=== PATIENT | female | born 1980 | race Caucasian/White ===

== ENCOUNTER 2016-10-07 10:02 | Emergency (ER) | payer BC, OTHER ==
[~2016-10-07] VITALS: Ht 175.3 cm; Wt 133.0 kg
[~2016-10-07 10:02] MED LIST: ARIP20TA6 PO; CIPR500T4 PO; CITA-104 PO; CYCL5TAB PO; FAMO-18 PO; HYDR2TAB15 PO; METR500T PO; NORE-17 PO; ZOF8 PO; [UNRECOGNIZED DRUG - CODE] PO
[2016-10-07 10:06] VITALS: Ht 175.3 cm; Wt 133.0 kg
[2016-10-07] MEDS ORDERED: BEN50 PO (10:56)
[2016-10-07] MEDS ORDERED: PRED20TA PO (10:56)
[2016-10-07] MEDS ORDERED: SODI126M NASAL (10:56)
[2016-10-07] MEDS ORDERED: LIDOCAINE 2% VISC 15 ML CUP PO ONE (11:00)
--- NOTE | 2016-10-07 14:16 | ERD ---
ER Documentation Chief Complaint Date/Time DATE: 10/07/16 TIME: 14:03 Chief Complaint COUGH STARTED TODAY; SORE THROAT HPI 36-year-old female complaining of sore throat and cough since this morning. Patient stated that she has pain in her uvula, and felt her uvula is swollen. When she coughed, there was slight blood. Patient also reports body aches and nasal congestion. She is taking Metformin, gabapentin, insulin, oral contraceptive, losartan, citalopram. Denies fever or chills. Denies shortness of breath. Denies exposure to new foods or new cleaning products. ROS All systems reviewed and are negative except as per history of present illness. Medications Home Meds Active Scripts Sodium Chloride (Saline Nasal Mist) 126 Ml Mist, 2 SPRAY NASAL Q2H Y for NASAL CONGESTION, #1 BOTTLE Prov:JONNIE ROACH. CODE ENFORCEMENT SUPERVISOR 10/07/16 Diphenhydramine Hcl* (Benadryl*) 50 Mg Cap, 50 MG PO Q6H Y for ITCHING/RASH, # 30 CAP Prov:JONNIE ROACH. CODE ENFORCEMENT SUPERVISOR 10/07/16 Prednisone* (Prednisone*) 20 Mg Tab, 60 MG PO DAILY for 3 Days, TAB Prov:JONNIE ROACH. CODE ENFORCEMENT SUPERVISOR 10/07/16 Cyclobenzaprine Hcl* (Cyclobenzaprine Hcl*) 5 Mg Tablet, 5 MG PO Q8H Y for MUSCLE SPASMS, #30 TAB Prov:DAGO ESPARZA 04/17/15 Ciprofloxacin Hcl* (Ciprofloxacin Hcl*) 500 Mg Tablet, 500 MG PO BID for 5 Days , TAB Prov:DAGO ESPARZA 04/17/15 Metronidazole* (Flagyl*) 500 Mg Tablet, 500 MG PO TID for 5 Days, TAB Prov:DAGO ESPARZA 04/17/15 Fvkakb-Vacektx-Ndtjxkue* (Pancrelipase* DR) 1 Cap Cap, 1 CAP PO WITH MEALS for 30 Days, CAP 3 Refills Prov:DAGO ESPARZA 04/17/15 Hydromorphone Hcl* (Dilaudid*) 2 Mg Tab, 2 MG PO Q6H Y for PAIN, #30 Prov:DAGO ESPARZA 04/17/15 Ondansetron Hcl* (Zofran* ODT) 8 mg -ODT Tab.disper, 8 MG PO Q6 Y for NAUSEA AND /OR VOMITING, #10 TAB Prov:PATRICIA SCHREIBER PA-C 04/10/15 Famotidine* (Pepcid*) 20 Mg Tablet, 20 MG PO BID for 4 Days, TAB Prov:VIRA BROWN MD 04/09/15 Reported Medications Citalopram Hydrobromide* (Citalopram Hydrobromide*) 40 Mg Tablet, 60 MG PO DAILY , TAB 04/09/15 Norethindrone A-E Estradiol (GILDESS) 1 Each Tablet, 1 EACH PO DAILY 12/24/14 Aripiprazole* (Abilify*) 20 Mg Tablet, 20 MG PO DAILY, TAB 12/23/14 Allergies Allergies: Coded Allergies: Penicillins (Verified Allergy, Unknown, 04/11/15) latex (Verified Allergy, Unknown, 04/11/15) Uncoded Allergies: iv contrast (Allergy, Intermediate, 12/24/14) rash and itching PMhx/Soc History of Surgery: Yes (CHOLECYSTECTOMY ) Anesthesia Reaction: No Hx Neurological Disorder: No Hx Respiratory Disorders: No Hx Cardiac Disorders: No Hx Psychiatric Problems: No Hx Miscellaneous Medical Probl: Yes (PANCREATITIS , POLYCYSTIC OVARY DISEASE, DM ) Hx Alcohol Use: No Hx Substance Use: No Hx Tobacco Use: No Smoking Status: Never smoker Physical Exam Vitals Vital Signs Date Time Temp Pulse Resp B/P Pulse Ox O2 Delivery O2 Flow Rate FiO2 10/07/16 10:06 97.8 98 96 127/75 94 Physical Exam General impression: Well-developed, well-nourished, 36-year-old female, alert, oriented, in no acute distress Head: Normocephalic, atraumatic. Eyes: PERRL, EOM normal. Conjunctiva not injected. ENT: Nasal mucosa erythematous and swollen. Oral mucosa normal. Uvula swollen and erythematous. No tonsillar swelling or exudates. Neck: Supple, nontender. No lymphanopathy. No nuchal rigidity. Respiration: Normal respiratory effort. Lungs clear to auscultate bilaterally. No wheezes, rales or rhonchi. Cardiovascular: Regular rate and rhythm. No murmurs or extra heart sounds. Neuro: Mental status normal, speech normal. Skin: Normal turgor. No rash or lesions. Psych: Normal mood and affect. Results 24 hrs Current Medications Medications (Trade) Dose Ordered Sig/Refugio Route PRN Reason Start Time Stop Time Status Last Admin Dose Admin Lidocaine (Xylocaine (Viscous)) 15 ml ONCE ONCE PO 10/07/16 11:00 10/07/16 11:01 DC 10/07/16 11:06 Procedures/MDM Patient appears to have uvulitis, suspect angioedema secondary to losartan. No sign of anaphylaxis. Patient advised to stop losartan and follow-up with her PCP. Patient also appeared to have superimposing viral upper respiratory infection. Patient is afebrile, in no respiratory distress. Lungs are clear to auscultate. I doubt that patient has pneumonia or bronchitis. Viscous lidocaine given to the patient in the ED for pain relief. Patient appears well, stable for discharge and outpatient management. Medical decision making shared with patient and family. Education provided to patient and family. Patient and family expressed understanding of the plan. Medications on discharge: Prednisone, Benadryl, saline nasal spray. Follow-up: Primary care provider in 2-3 days or return to ED if worse. Departure Diagnosis: Primary Impression: Uvulitis Additional Impression: URI (upper respiratory infection) Condition: Stable Patient Instructions: Kid Care: Colds, Uvulitis Additional Instructions: Call your primary care doctor TOMORROW for an appointment during the next 2-3 days.See the doctor sooner or return here if your condition worsens before your appointment time. JONNIE ROACH NP Oct 07, 2016 14:15
== END 2016-10-07 11:30 | disposition home or self-care (01) ==
LOC: FTE 10:02
DX: K12.2 Cellulitis and abscess of mouth (principal); J06.9 Acute upper respiratory infection, unspecified; E11.9 Type 2 diabetes mellitus without complications; Z79.4 Long term (current) use of insulin; Z79.84 Long term (current) use of oral hypoglycemic drugs
CPT/HCPCS: Z7502; Z7610; 99283

== ENCOUNTER 2016-10-10 16:48 | Emergency (ER) | payer OTHER ==
[~2016-10-10] VITALS: Ht 175.3 cm; Wt 133.0 kg
[~2016-10-10 16:48] MED LIST changes: +BEN50 PO; +PRED20TA PO; +SODI126M NASAL
[2016-10-10 16:53] VITALS: Ht 175.3 cm; Wt 133.0 kg
[2016-10-10] MEDS ORDERED: HYDROmorphONE 1 MG/ML SYG IV STA (18:14)
[2016-10-10] MEDS ORDERED: ONDANSETRON 4 MG INJ IV STA (18:14)
--- NOTE | 2016-10-10 18:35 | ERD ---
ER Documentation Chief Complaint Date/Time DATE: 10/10/16 TIME: 18:31 Chief Complaint AP SINCE Thursday This patient is a 36-year-old female with history of pancreatitis, PCOS, fatty liver, and type 2 diabetes who is presenting to the emergency department for right upper quadrant pain which began at 10 AM today. She rates the pain a 9 out of 10 on the pain scale with radiation to the back. Additionally she reports nausea and pale, white stools for the past 2 days. She states this happened in the past before when she had pancreatitis. She has taken no medications today for relief of her symptoms. She has no fevers, chills, vomiting, diarrhea, or other symptoms at this time. There are no other alleviating or exacerbating factors at this time. ROS All systems reviewed and are negative except as per history of present illness. Medications Home Meds Active Scripts Hydrocodone/Acetaminophen ([place] 5-325 Tablet) 1 Each Tablet, 1 TAB PO Q6H Y for PAIN, #6 TAB Prov:PAUL PEREZ PA-C 10/10/16 Sodium Chloride (Saline Nasal Mist) 126 Ml Mist, 2 SPRAY NASAL Q2H Y for NASAL CONGESTION, #1 BOTTLE Prov:JONNIE ROACH. COMMERCIAL REVIEW APPRAISER 10/07/16 Diphenhydramine Hcl* (Benadryl*) 50 Mg Cap, 50 MG PO Q6H Y for ITCHING/RASH, # 30 CAP Prov:JONNIE ORACH. COMMERCIAL REVIEW APPRAISER 10/07/16 Prednisone* (Prednisone*) 20 Mg Tab, 60 MG PO DAILY for 3 Days, TAB Prov:JONNIE ROACH. COMMERCIAL REVIEW APPRAISER 10/07/16 Cyclobenzaprine Hcl* (Cyclobenzaprine Hcl*) 5 Mg Tablet, 5 MG PO Q8H Y for MUSCLE SPASMS, #30 TAB Prov:DAGO ESPARZA F 04/17/15 Ciprofloxacin Hcl* (Ciprofloxacin Hcl*) 500 Mg Tablet, 500 MG PO BID for 5 Days , TAB Prov:DAGO ESPARZA F 04/17/15 Metronidazole* (Flagyl*) 500 Mg Tablet, 500 MG PO TID for 5 Days, TAB Prov:DAGO ESPARZA F 04/17/15 Mdbqar-Ehjvnxn-Olvniilc* (Pancrelipase* DR) 1 Cap Cap, 1 CAP PO WITH MEALS for 30 Days, CAP 3 Refills Prov:DAGO ESPARZA 04/17/15 Hydromorphone Hcl* (Dilaudid*) 2 Mg Tab, 2 MG PO Q6H Y for PAIN, #30 Prov:DAGO ESPARZA 04/17/15 Ondansetron Hcl* (Zofran* ODT) 8 mg -ODT Tab.disper, 8 MG PO Q6 Y for NAUSEA AND /OR VOMITING, #10 TAB Prov:PATRICIA SCHREIBER PA-C 04/10/15 Famotidine* (Pepcid*) 20 Mg Tablet, 20 MG PO BID for 4 Days, TAB Prov:VIRA BROWN MD 04/09/15 Reported Medications Citalopram Hydrobromide* (Citalopram Hydrobromide*) 40 Mg Tablet, 60 MG PO DAILY , TAB 04/09/15 Norethindrone A-E Estradiol (GILDESS) 1 Each Tablet, 1 EACH PO DAILY 12/24/14 Aripiprazole* (Abilify*) 20 Mg Tablet, 20 MG PO DAILY, TAB 12/23/14 Allergies Allergies: Coded Allergies: Penicillins (Verified Allergy, Unknown, 04/11/15) latex (Verified Allergy, Unknown, 04/11/15) Uncoded Allergies: iv contrast (Allergy, Intermediate, 12/24/14) rash and itching PMhx/Soc History of Surgery: Yes (CHOLECYSTECTOMY ) Anesthesia Reaction: No Hx Neurological Disorder: No Hx Respiratory Disorders: No Hx Cardiac Disorders: No Hx Psychiatric Problems: No Hx Miscellaneous Medical Probl: Yes (PANCREATITIS , POLYCYSTIC OVARY DISEASE, DM ) Hx Alcohol Use: No Hx Substance Use: No Hx Tobacco Use: No FmHx Noncontributory for chief Physical Exam Vitals Vital Signs Date Time Temp Pulse Resp B/P Pulse Ox O2 Delivery O2 Flow Rate FiO2 10/10/16 20:35 73 18 130/83 97 Room Air 10/10/16 16:53 98.1 99 20 150/90 99 Physical Exam INITIAL VITAL SIGNS: Reviewed by me GENERAL: The patient is well developed and appropriate for usual state of health in no apparent distress HEENT: Pupils equal, round, and reactive to light. EOMI. There is no scleral icterus. NECK: C-spine is soft and supple, there is no meningismus. There is no cervical lymphadenopathy. LUNGS: Clear to auscultation bilaterally. There are no rales, wheezes or rhonchi. HEART: Regular rate and rhythm, no murmurs, clicks, rubs or gallops. ABDOMEN: Obese with tenderness to palpation of the right upper quadrant. There is no rebound tenderness or guarding. There is no McBurney's point tenderness. Negative Rovsing sign. EXTREMITIES: There is no peripheral cyanosis or edema. No focal swelling or erythema. NEUROLOGICAL: The patient moves all four extremities with 5/5 strength. Normal gait. Alert and oriented SKIN: There is no apparent rash or petechiae. HEME/LYMPHATIC: There is no evidence of excessive bruising or lymphedema. PSYCHIATRIC: The patient does not appear anxious or depressed. Result Diagram: 10/10/16184810/10/161848 Results 24 hrs Laboratory Tests Test 10/10/16 18:49 10/10/16 18:58 Alanine Aminotransferase (ALT/SGPT) 18IU/L Albumin 3.9g/dl Albumin/Globulin Ratio 1.05 Alkaline Phosphatase 97IU/L Anion Gap 19 Aspartate Amino Transf (AST/SGOT) 15IU/L Basophils # 0.110^3/ul Basophils % 0.4% Blood Morphology Comment Blood Urea Nitrogen 22mg/dl Calcium Level 9.8mg/dl Carbon Dioxide Level 22mmol/L Chloride Level 101mmol/L Creatinine 0.70mg/dl Direct Bilirubin 0.00mg/dl Eosinophils # 0.110^3/ul Eosinophils % 0.9% Globulin 3.70g/dl Glucose Level 238mg/dl Hematocrit 40.2% Hemoglobin 13.8g/dl Indirect Bilirubin 0.1mg/dl Lipase 251U/L Lymphocytes # 5.010^3/ul Lymphocytes % 32.5% Mean Corpuscular Hemoglobin 28.9pg Mean Corpuscular Hemoglobin Concent 34.3g/dl Mean Corpuscular Volume 84.3fl Mean Platelet Volume 7.8fl Monocytes # 1.510^3/ul Monocytes % 9.6% Neutrophils # 8.810^3/ul Neutrophils % 56.6% Nucleated Red Blood Cells # 0.010^3/ul Nucleated Red Blood Cells % 0.0/100WBC Platelet Count 67579^3/UL Potassium Level 3.6mmol/L Red Blood Count 4.7710^6/ul Red Cell Distribution Width 13.2% Sodium Level 138mmol/L Total Bilirubin 0.1mg/dl Total Protein 7.6g/dl White Blood Count 15.510^3/ul Urine Bacteria MODERATE Urine Bilirubin NEGATIVE Urine Calcium Oxalate Crystals FEW Urine Clarity CLOUDY Urine Color YELLOW Urine Glucose 0.5%% Urine Hemoglobin 3+ Urine Ketones TRACE Urine Leukocyte Esterase NEGATIVE Urine Microscopic RBC 10-25/HPF Urine Microscopic WBC 5-10/HPF Urine Nitrite NEGATIVE Urine Specific [place] >=1.030 Urine Squamous Epithelial Cells MANY Urine Total Protein 1+ Urine Urobilinogen 0.2 E.U./dL Urine pH 6.0 Current Medications Medications (Trade) Dose Ordered Sig/Refugio Route PRN Reason Start Time Stop Time Status Last Admin Dose Admin Hydromorphone HCl (Dilaudid) 1 mg ONCE STAT IV 10/10/16 18:14 10/10/16 18:17 DC 10/10/16 18:33 Ondansetron HCl (Zofran Inj) 4 mg ONCE STAT IV 10/10/16 18:14 10/10/16 18:17 DC 10/10/16 18:33 Procedures/MDM ED course: Labs: Lab results reviewed and there was slight leukocytosis with left shift. Lipase was with in normal limits. The patient's glucose was slightly elevated at 238 there were no signs of DKA. Medications: IV Dilaudid was given in the department for acute pain relief. IV Zofran was given in the department for acute nausea relief. Reevaluation: The patient was reevaluated at approximately 7:13 PM and was feeling improved after medication for pain relief. MDM: This patient is a 36-year-old female presenting to the emergency department for right upper quadrant pain which began at 10 AM today. Physical examination reveals the patient is acutely tender to palpation of the right upper quadrant. The patient was given IV Dilaudid and IV Zofran for relief of acute pain and nausea. The patient was feeling improved on reevaluation. After review of labs there were no signs of pancreatitis or other acute abdominal emergencies. At this time the patient is stable for discharge home with a prescription for acute pain relief. The patient was told to follow-up within 24 hours if her abdominal pain persists. If the patient has any concerning symptoms she is also advised to return the emergency department. I discussed this case with supervising physician Dr. Finesse Perdomo who agreed with the laboratory results, radiology results, assessment, and plan. The patient agrees with the plan and she is stable for discharge at this time. Her questions and concerns were addressed. Departure Diagnosis: Primary Impression: Abdominal pain Condition: Stable Patient Instructions: Abdominal Pain Additional Instructions: Follow-up with your primary care physician within 1 week. Return to the emergency department immediately should you have any new or worsening symptoms, uncontrolled fevers, or other unexplained symptoms. Take all medications as directed. The patient's blood pressure was elevated (>120/80) but appears stable without evidence of hypertension emergency or urgency. The patient was counseled about the risks of hypertension and urged to pursue outpatient monitoring and therapy within a week with their primary care physician. PAUL PEREZ PA-C Oct 10, 2016 18:35
[2016-10-10 19:09] LABS: BASOPHIL # 0.1 10^3/ul (0.0-0.1); BASOPHILS % 0.4 % (0.0-2.0); EOSINOPHILS # 0.1 10^3/ul (0.0-0.5); EOSINOPHILS % 0.9 % (0.0-7.0); HEMATOCRIT 40.2 % (37.0-47.0); HEMOGLOBIN 13.8 g/dl (12.0-16.0); LYMPHOCYTES % 32.5 % (15.0-51.0); MEAN CORPUSCULAR HEMOGLOBIN 28.9 pg (29.0-33.0); MEAN CORPUSCULAR HGB CONC 34.3 g/dl (32.0-37.0); MEAN CORPUSCULAR VOLUME 84.3 fl (82.0-101.0); MEAN PLATELET VOLUME 7.8 fl (7.4-10.4); MONOCYTE # 1.5 10^3/ul (0.3-0.9); MONOCYTES % 9.6 % (0.0-11.0); NEUTROPHIL # 8.8 10^3/ul (1.6-7.5); NEUTROPHILS % 56.6 % (39.0-77.0); PLATELET COUNT 388 10^3/UL (140-440); RED BLOOD COUNT 4.77 10^6/ul (4.20-5.40); RED CELL DISTRIBUTION WIDTH 13.2 % (11.5-14.5); UNCORRECTED WBC 15.5 10^3/ul (4.8-10.8); WHITE BLOOD COUNT 15.5 10^3/ul (4.8-10.8)
[2016-10-10 19:09] LABS: ADD UMIC YES; URINE BILIRUBIN (Dip) NEGATIVE (NEGATIVE); URINE BLOOD (Dip) 3+ (NEGATIVE); URINE KETONES (Dip) TRACE (NEGATIVE); URINE LEUKOCYTE ESTERASE (Dip) NEGATIVE (NEGATIVE); URINE NITRITE (Dip) NEGATIVE (NEGATIVE); URINE TOTAL PROTEIN (Dip) 1+ (NEGATIVE); URINE UROBILINOGEN (Dip) 0.2 E.U./dL (0.1-1.0)
[2016-10-10 19:15] LABS: ALBUMIN 3.9 g/dl (3.3-4.9); POTASSIUM 3.6 mmol/L (3.5-5.1)
[2016-10-10 19:16] LABS: CONDITION 1
[2016-10-10 19:17] LABS: CREATININE 0.7 mg/dl (0.44-1.00)
[2016-10-10 19:18] LABS: ALBUMIN/GLOBULIN RATIO 1.05; BILIRUBIN,INDIRECT 0.1 mg/dl (0-1.1); BILIRUBIN,TOTAL 0.1 mg/dl (0.2-1.3); CALCIUM 9.8 mg/dl (8.4-10.2); TOTAL PROTEIN 7.6 g/dl (6.1-8.1)
[2016-10-10 19:37] LABS: URINE COLOR YELLOW (YELLOW)
[2016-10-10 19:42] LABS: BACTERIA,URINE MODERATE; SQUAMOUS EPITHELIAL CELL,UR MANY
[2016-10-10] MEDS ORDERED: HYDR-906 PO (19:59)
[2016-10-10 20:35] VITALS: BP 130/83; PULSE 73; RESP 18
== END 2016-10-10 20:35 | disposition home or self-care (01) ==
LOC: FTE 16:48
DX: R10.11 Right upper quadrant pain (principal); R11.0 Nausea; E11.9 Type 2 diabetes mellitus without complications; Z91.040 Latex allergy status
CPT/HCPCS: 36415; 80053; 81001; 83690; 85025; 96374; 96375; J1170; J2405; Z7502; 81003

== ENCOUNTER 2016-10-12 02:42 | Emergency (ER) | payer OTHER ==
[~2016-10-12] VITALS: Wt 110.0 kg
[~2016-10-12 02:42] MED LIST changes: +HYDR-906 PO
[2016-10-12] MEDS ORDERED: ONDANSETRON 4 MG INJ IV STA (04:07)
[2016-10-12] MEDS ORDERED: morphine 4 MG/ML VIAL IV STA (04:07)
[2016-10-12] MEDS ORDERED: SOD CHLORIDE 0.9% 1,000 ML IV STA (04:07)
[2016-10-12] MEDS ORDERED: morphine 10 MG INJ IM ONE (04:30)
[2016-10-12] MEDS ORDERED: ONDANSETRON (ODT) 4 MG TAB ODT STA (04:30)
--- NOTE | 2016-10-12 04:39 | ERD ---
ER Documentation Chief Complaint Date/Time DATE: 10/12/16 TIME: 04:37 Chief Complaint rt side abd pain radiating to right side 3 days HPI 36-year-old female presents here in emergency department for complaints of right -sided abdominal pain and right upper quadrant, right lower quadrant pain for 3 days. Patient has history of chronic pancreatitis, patient feels that she is having the same flareup. Patient did not take any medications up and symptoms. Patient describes the pain as sharp pain, 6/10 scale, not better or worse with anything. Patient denies any vomiting. Patient denies any fever or chills. ROS All systems reviewed and are negative except as per history of present illness. Medications Home Meds Active Scripts Hydrocodone/Acetaminophen ([place] 5-325 Tablet) 1 Each Tablet, 1 TAB PO Q6H Y for PAIN, #6 TAB Prov:PAUL PEREZ PA-C 10/10/16 Sodium Chloride (Saline Nasal Mist) 126 Ml Mist, 2 SPRAY NASAL Q2H Y for NASAL CONGESTION, #1 BOTTLE Prov:JONNIE ROACH. MEDICAL INSTRUCTOR 10/07/16 Diphenhydramine Hcl* (Benadryl*) 50 Mg Cap, 50 MG PO Q6H Y for ITCHING/RASH, # 30 CAP Prov:JONNIE ROACH. MEDICAL INSTRUCTOR 10/07/16 Prednisone* (Prednisone*) 20 Mg Tab, 60 MG PO DAILY for 3 Days, TAB Prov:JONNIE ROACH. MEDICAL INSTRUCTOR 10/07/16 Cyclobenzaprine Hcl* (Cyclobenzaprine Hcl*) 5 Mg Tablet, 5 MG PO Q8H Y for MUSCLE SPASMS, #30 TAB Prov:DAGO ESPARZA 04/17/15 Ciprofloxacin Hcl* (Ciprofloxacin Hcl*) 500 Mg Tablet, 500 MG PO BID for 5 Days , TAB Prov:DAGO ESPARZA 04/17/15 Metronidazole* (Flagyl*) 500 Mg Tablet, 500 MG PO TID for 5 Days, TAB Prov:DAGO ESPARZA 04/17/15 Ewlywp-Hoduoyq-Lwjjxyys* (Pancrelipase* DR) 1 Cap Cap, 1 CAP PO WITH MEALS for 30 Days, CAP 3 Refills Prov:DAGO ESPARZA 04/17/15 Hydromorphone Hcl* (Dilaudid*) 2 Mg Tab, 2 MG PO Q6H Y for PAIN, #30 Prov:DAGO ESPARZA 04/17/15 Ondansetron Hcl* (Zofran* ODT) 8 mg -ODT Tab.disper, 8 MG PO Q6 Y for NAUSEA AND /OR VOMITING, #10 TAB Prov:PATRICIA SCHREIBER PA-C 04/10/15 Famotidine* (Pepcid*) 20 Mg Tablet, 20 MG PO BID for 4 Days, TAB Prov:VIRA BROWN MD 04/09/15 Reported Medications Citalopram Hydrobromide* (Citalopram Hydrobromide*) 40 Mg Tablet, 60 MG PO DAILY , TAB 04/09/15 Norethindrone A-E Estradiol (GILDESS) 1 Each Tablet, 1 EACH PO DAILY 12/24/14 Aripiprazole* (Abilify*) 20 Mg Tablet, 20 MG PO DAILY, TAB 12/23/14 Allergies Allergies: Coded Allergies: Penicillins (Verified Allergy, Unknown, 04/11/15) latex (Verified Allergy, Unknown, 04/11/15) Uncoded Allergies: iv contrast (Allergy, Intermediate, 12/24/14) rash and itching PMhx/Soc History of Surgery: Yes (CHOLECYSTECTOMY ) Anesthesia Reaction: No Hx Neurological Disorder: No Hx Respiratory Disorders: No Hx Cardiac Disorders: No Hx Psychiatric Problems: No Hx Miscellaneous Medical Probl: Yes (PANCREATITIS , POLYCYSTIC OVARY DISEASE, DM ) Hx Alcohol Use: No Hx Substance Use: No Hx Tobacco Use: No Smoking Status: Never smoker FmHx Family History: No coronary disease, No diabetes, No other Physical Exam Vitals Vital Signs Date Time Temp Pulse Resp B/P Pulse Ox O2 Delivery O2 Flow Rate FiO2 10/12/16 03:29 98.1 66 18 138/86 98 10/12/16 03:00 98.2 89 18 138/86 98 Physical Exam GENERAL: The patient is well developed and appropriate for usual state of health, in no apparent distress. CHEST: Clear to auscultation bilaterally. There are no rales, wheezes or rhonchi. HEART: Regular rate and rhythm. No murmurs, clicks, rubs or gallops. No S3 or S4. ABDOMEN: Soft, nontender and nondistended. Good bowel sounds. No rebound or guarding. No gross peritonitis. No gross organomegaly or masses. No Romero sign or McBurney point tenderness. BACK: No midline or flank tenderness. EXTREMITIES: Equal pulses bilaterally. There is no peripheral clubbing, cyanosis or edema. No focal swelling or erythema. Full range of motion. Grossly neurovascularly intact. NEURO: Alert and oriented. Cranial nerves 2-12 intact. Motor strength in all 4 extremities with 5/5 strength. Sensation grossly intact. Normal speech and gait. SKIN: There is no apparent rash or petechia. The skin is warm and dry. HEMATOLOGIC AND LYMPHATIC: There is no evidence of excessive bruising or lymphedema. No gross cervical, axillary, or inguinal lymphadenopathy. Result Diagram: 10/12/16 0513 10/12/16 0513 Results 24 hrs Laboratory Tests Test 10/12/16 03:30 10/12/16 05:13 Urine Bacteria MODERATE Urine Bilirubin 1+ Urine Clarity CLOUDY Urine Color RED Urine Glucose NEGATIVE% Urine Hemoglobin 3+ Urine Ictotest NEGATIVE Urine Ketones TRACE Urine Leukocyte Esterase NEGATIVE Urine Microscopic RBC >200/HPF Urine Microscopic WBC 5-10/HPF Urine Nitrite NEGATIVE Urine Specific [place] >=1.030 Urine Squamous Epithelial Cells MODERATE Urine Total Protein 2+ Urine Urobilinogen 0.2 E.U./dL Urine pH 6.0 Alanine Aminotransferase (ALT/SGPT) 20IU/L Albumin 3.6g/dl Albumin/Globulin Ratio 1.02 Alkaline Phosphatase 89IU/L Anion Gap 16 Aspartate Amino Transf (AST/SGOT) 20IU/L Basophils # 0.010^3/ul Basophils % 0.4% Blood Morphology Comment Blood Urea Nitrogen 18mg/dl Calcium Level 9.2mg/dl Carbon Dioxide Level 27mmol/L Chloride Level 102mmol/L Creatinine 0.68mg/dl Direct Bilirubin 0.00mg/dl Eosinophils # 0.410^3/ul Eosinophils % 3.5% Globulin 3.50g/dl Glucose Level 140mg/dl Hematocrit 39.3% Hemoglobin 13.5g/dl Indirect Bilirubin 0.2mg/dl Lipase 231U/L Lymphocytes # 4.310^3/ul Lymphocytes % 35.5% Mean Corpuscular Hemoglobin 28.9pg Mean Corpuscular Hemoglobin Concent 34.4g/dl Mean Corpuscular Volume 83.8fl Mean Platelet Volume 7.3fl Monocytes # 0.910^3/ul Monocytes % 7.5% Neutrophils # 6.510^3/ul Neutrophils % 53.1% Nucleated Red Blood Cells # 0.010^3/ul Nucleated Red Blood Cells % 0.0/100WBC Platelet Count 63224^3/UL Potassium Level 3.5mmol/L Red Blood Count 4.6910^6/ul Red Cell Distribution Width 13.4% Sodium Level 141mmol/L Total Bilirubin 0.2mg/dl Total Protein 7.1g/dl White Blood Count 12.210^3/ul Current Medications Medications (Trade) Dose Ordered Sig/Refugio Route PRN Reason Start Time Stop Time Status Last Admin Dose Admin Sodium Chloride (NS) 1,000 ml @ 1,000 mls/hr Q1H STAT IV 10/12/16 04:07 10/12/16 04:31 DC 10/12/16 04:19 Morphine Sulfate (morphine) 4 mg ONCE STAT IV 10/12/16 04:07 10/12/16 04:31 DC 10/12/16 04:20 Ondansetron HCl (Zofran Inj) 4 mg ONCE STAT IV 10/12/16 04:07 10/12/16 04:31 DC 10/12/16 04:18 Morphine Sulfate (morphine) 6 mg ONCE ONCE IM 10/12/16 04:30 10/12/16 04:31 DC 10/12/16 05:00 Ondansetron HCl (Zofran Odt) 4 mg ONCE STAT ODT 10/12/16 04:30 10/12/16 04:31 DC 10/12/16 05:00 Patient was given medication for pain here in emergency department, after treatment, patient verbalized feeling much better. Patient's pain is improved. PROCEDURE: CT abdomen and pelvis without intravenous contrast. CLINICAL INDICATION: Pain. TECHNIQUE: CT of the abdomen/pelvis was performed utilizing axial images with reconstructions in sagittal and coronal planes. The administered radiation dose is CTDI 23.5 mGy, DLP 1473.2 mGy-cm. COMPARISON: 04/11/2015 FINDINGS: Visualized Chest: The visualized lung bases are clear. Abdomen: The spleen, pancreas, gallbladder,and adrenal glands are unremarkable. The liver is markedly, diffusely decreased in attenuation, compatible with hepatic steatosis. Some areas of relative hyperdensity and noted throughout the liver, likely due to fatty sparing. This is unchanged compared to the prior. The kidneys are without hydronephrosis. No definite urinary calculi are seen. There is no evidence of bowel obstruction. The appendix is normal. No intra- abdominal free air is seen. There is no evidence of intra-abdominal adenopathy or free fluid. Pelvis: There is no evidence of pelvic adenopathy. The uterus and ovaries are without enlargement. The urinary bladder is unremarkable. There is no pelvic free fluid. Osseous structures: Unremarkable. IMPRESSION: No acute findings. Marked hepatic steatosis with areas of sparing unchanged compared to the prior. RPTAT: HIKT .Tomás Holder MD, MD Date Time Electronically viewed and signed by .Tomás Holder MD, MD on 10/12/2016 04:58 .T/ CC: LENORA ROGERS MEDICAL INSTRUCTOR Procedures/MDM Medical Decision Making: Patient symptoms of abdominal pain is nonspecific at this time, possible from chronic pain, can be also viral. At this time, there is no acute and chronic pancreatitis noted, lipase is normal, no inflammatory changes in the CT scan showing pancreatitis. There is low suspicion for abdominal emergencies at this time. Patients abdominal exam is normal at this time. Patients radiology exam does not show any abdominal emergencies at this time. There is low suspicion for appendicitis, cholecystitis, abdominal aortic aneurysms or peritonitis at this time. There is low suspicion for sepsis. Patient appears well and is hemodynamically stable. Disposition: Home. Condition: Stable Prescription [place], Zofran Instructions: Patient is advised to take medications as prescribed. Patient is advised to rest, increase fluid intake and do brat diet for next 1-2 days and progress as tolerated. Patient is advised that if symptoms are worse, severe abdominal pain, uncontrolled vomiting, high fever, severe flank pain, worst signs and symptoms, to return to the emergency department immediately. Otherwise, patient can follow up with primary care doctor in 5-7 days. Departure Diagnosis: Primary Impression: Abdominal pain Abdominal location: unspecified location Qualified Code: R10.9 - Abdominal pain, unspecified location Condition: Stable Patient Instructions: Abdominal Pain Additional Instructions: Patient is advised to take medications as prescribed. Patient is advised to rest , increase fluid intake and do brat diet for next 1-2 days and progress as tolerated. Patient is advised that if symptoms are worse, severe abdominal pain , uncontrolled vomiting, high fever, severe flank pain, worst signs and symptoms , to return to the emergency department immediately. Otherwise, patient can follow up with primary care doctor in 5-7 days. LENORA ROGERS NP Oct 12, 2016 04:39
--- NOTE | 2016-10-12 04:59 | RADRPT ---
PROCEDURE: CT abdomen and pelvis without intravenous contrast. CLINICAL INDICATION: Pain. TECHNIQUE: CT of the abdomen/pelvis was performed utilizing axial images with reconstructions in s agittal and coronal planes. The administered radiation dose is CTDI 23.5 mGy, DLP 1473.2 mGy-cm. COMPARISON: 04/11/2015 FINDINGS: Visualized Chest: The visualized lung bases are clear. Abdomen: The spleen, pancreas, gallbladder,and adrenal glands are unremarkable. The liver is markedly, dif fusely decreased in attenuation, compatible with hepatic steatosis. Some areas of relative hyperdens ity and noted throughout the liver, likely due to fatty sparing. This is unchanged compared to the p rior. The kidneys are without hydronephrosis. No definite urinary calculi are seen. There is no evidence of bowel obstruction. The appendix is normal. No intra-abdominal free air is seen. There is no evidence of intra-abdominal adenopathy or free fluid. Pelvis: There is no evidence of pelvic adenopathy. The uterus and ovaries are without enlargement. The uri nary bladder is unremarkable. There is no pelvic free fluid. Osseous structures: Unremarkable. IMPRESSION: No acute findings. Marked hepatic steatosis with areas of sparing unchanged compared to the prior. RPTAT: HIKT .Tomás Holder MD, MD Date Time Electronically viewed and signed by .Tomás Holder MD, on 10/12/2016 04:58 .T/
[2016-10-12 05:07] LABS: ADD UMIC YES; URINE BILIRUBIN (Dip) 1+ (NEGATIVE); URINE BLOOD (Dip) 3+ (NEGATIVE); URINE COLOR RED (YELLOW); URINE GLUCOSE (Dip) NEGATIVE (NEGATIVE); URINE KETONES (Dip) TRACE (NEGATIVE); URINE LEUKOCYTE ESTERASE (Dip) NEGATIVE (NEGATIVE); URINE NITRITE (Dip) NEGATIVE (NEGATIVE); URINE TOTAL PROTEIN (Dip) 2+ (NEGATIVE); URINE UROBILINOGEN (Dip) 0.2 E.U./dL (0.1-1.0)
[2016-10-12 05:14] LABS: BACTERIA,URINE MODERATE; ICTOTEST NEGATIVE (NEGATIVE); SQUAMOUS EPITHELIAL CELL,UR MODERATE; URINE RBCS >200 /HPF ([, 0])
[2016-10-12 05:23] LABS: BASOPHILS % 0.4 % (0.0-2.0); EOSINOPHILS # 0.4 10^3/ul (0.0-0.5); EOSINOPHILS % 3.5 % (0.0-7.0); HEMATOCRIT 39.3 % (37.0-47.0); HEMOGLOBIN 13.5 g/dl (12.0-16.0); LYMPHOCYTES # 4.3 10^3/ul (0.8-2.9); LYMPHOCYTES % 35.5 % (15.0-51.0); MEAN CORPUSCULAR HEMOGLOBIN 28.9 pg (29.0-33.0); MEAN CORPUSCULAR HGB CONC 34.4 g/dl (32.0-37.0); MEAN CORPUSCULAR VOLUME 83.8 fl (82.0-101.0); MEAN PLATELET VOLUME 7.3 fl (7.4-10.4); MONOCYTE # 0.9 10^3/ul (0.3-0.9); MONOCYTES % 7.5 % (0.0-11.0); NEUTROPHIL # 6.5 10^3/ul (1.6-7.5); NEUTROPHILS % 53.1 % (39.0-77.0); PLATELET COUNT 391 10^3/UL (140-440); RED BLOOD COUNT 4.69 10^6/ul (4.20-5.40); RED CELL DISTRIBUTION WIDTH 13.4 % (11.5-14.5); UNCORRECTED WBC 12.2 10^3/ul (4.8-10.8); WHITE BLOOD COUNT 12.2 10^3/ul (4.8-10.8)
[2016-10-12 05:27] LABS: CONDITION 1
[2016-10-12 05:35] LABS: ALBUMIN 3.6 g/dl (3.3-4.9); POTASSIUM 3.5 mmol/L (3.5-5.1)
[2016-10-12 05:38] LABS: ALBUMIN/GLOBULIN RATIO 1.02; BILIRUBIN,INDIRECT 0.2 mg/dl (0-1.1); BILIRUBIN,TOTAL 0.2 mg/dl (0.2-1.3); CALCIUM 9.2 mg/dl (8.4-10.2); CREATININE 0.68 mg/dl (0.44-1.00); TOTAL PROTEIN 7.1 g/dl (6.1-8.1)
[2016-10-12] MEDS ORDERED: ONDA4TAB14 PO (05:57)
[2016-10-12] MEDS ORDERED: HYDR-906 PO (05:57)
[2016-10-12 06:00] VITALS: BP 120/67; PULSE 74; RESP 22; TEMP 97.7
== END 2016-10-12 06:05 | disposition home or self-care (01) ==
LOC: FTE 02:42
DX: R10.11 Right upper quadrant pain (principal); E11.9 Type 2 diabetes mellitus without complications
CPT/HCPCS: 74176; 80053; 81001; 83690; 85025; J2270; J2405; J7030; Z7610; 81003; 96372; 96374; 96375